=== PATIENT | female | born 1980 | race Caucasian/White ===

== ENCOUNTER 2022-02-09 12:48 | Emergency (ER) | payer BC ==
[2022-02-09 15:11] VITALS: BP 104/79; PULSE 75
[2022-02-09] MEDS ORDERED: Sodium Chloride 0.9% 10 ML Syringe FLUSH PRN (15:39)
[2022-02-09] MEDS ORDERED: Ketorolac 30 MG/ML SDV IVPUSH ONE (15:41)
[2022-02-09 16:41] LABS: ESTIMATED GFR 73 mL/min (>60)
== END 2022-02-09 17:15 | disposition home or self-care (01) ==
LOC: JD.ED 12:48
DX: S29.011A Strain of muscle and tendon of front wall of thorax, initial encounter (principal); E66.9 Obesity, unspecified; Z68.29 Body mass index [BMI] 29.0-29.9, adult; Z91.048 Other nonmedicinal substance allergy status; Z88.2 Allergy status to sulfonamides; Z79.899 Other long term (current) drug therapy; Z90.49 Acquired absence of other specified parts of digestive tract; Z90.710 Acquired absence of both cervix and uterus; X58.XXXA Exposure to other specified factors, initial encounter
CPT/HCPCS: 36415; 71045; 80053; 83735; 84443; 84484; 85025; 85379; 86140; 93005; 96374; 99285; J1885; J3490; 93010; 99284